=== PATIENT | male | born 1955 | race Caucasian/White ===

== ENCOUNTER 2019-11-15 09:36 | Inpatient (IN) | payer BC ==
[~2019-11-15] VITALS: Ht 185.4 cm; Wt 82.5 kg
[2019-11-15 10:03] LABS: BASOPHILS % (AUTO) 1 % (0-1); EOSINOPHILS # (AUTO) 0.02 x10^3/uL (0-0.4); EOSINOPHILS % (AUTO) 0 % (1-7); LYMPHOCYTES # (AUTO) 1.42 x10^3/uL (1-3.4); LYMPHOCYTES % (AUTO) 12 % (22-44); MD NO; MEAN CORPUSCULAR HEMOGLOBIN 34.5 pg (27.5-34.5); MEAN CORPUSCULAR VOLUME 101.4 fL (81-97); MEAN PLATELET VOLUME 8.6 fL (7.4-10.4); MONOCYTES # (AUTO) 0.97 x10^3/uL (0.2-0.8); MONOCYTES % (AUTO) 8 % (2-9); NEUTROPHILS # (AUTO) 9.07 x10^3/uL (1.8-6.8); NEUTROPHILS % (AUTO) 78 % (42-75); PLATELET COUNT 263 x10^3/uL (130-400); RED CELL DISTRIBUTION WIDTH 13.6 % (9.4-14.8)
[2019-11-15 10:13] LABS: ALANINE AMINOTRANSFERASE 41 U/L (12-78); ALBUMIN 2.6 g/dL (3.4-5.0); CALCIUM 8.9 mg/dL (8.5-10.1); CREATININE 0.78 mg/dL (0.7-1.3)
[2019-11-15 10:17] LABS: ALKALINE PHOSPHATASE 169 U/L (45-117); BILIRUBIN,TOTAL 0.8 mg/dL (0.2-1.0); TOTAL PROTEIN 6.7 g/dL (6.4-8.2); TROPONIN I < 0.015 ng/mL (0.000-0.045)
[2019-11-15 10:25] LABS: ANION GAP 8 mmol/L (5-15); CHLORIDE 101 mmol/L (98-107)
[2019-11-15] MEDS ORDERED: PARO40TA3 PO (10:30)
[2019-11-15] MEDS ORDERED: PREG150C PO (10:30)
[2019-11-15] MEDS ORDERED: [UNRECOGNIZED DRUG - CODE] (10:30)
[2019-11-15] MEDS ORDERED: HYDROCHLOROTH12.5 MG PO (10:30)
[2019-11-15] MEDS ORDERED: PLEASE ENTER ALLERGIES MC SCH (10:30)
--- NOTE | 2019-11-15 10:31 | NUR ---
PT SITTING IN BED, ON PHONE. NO SIGNS OF DISTRESS. VSS. WILL CONTINUE TO MONITOR.
[2019-11-15] MEDS ORDERED: PREGABALIN 100 MG CAPSULE PO ONE (11:00)
--- NOTE | 2019-11-15 11:03 | NUR ---
PT TO CT. PT SITTING IN BED, VSS, NO SIGNS OF DISTRESS.
[2019-11-15] MEDS ORDERED: PREGABALIN 150 MG CAPSULE PO ONE (11:30)
--- NOTE | 2019-11-15 12:30 | NUR ---
PT SITTING IN BED, NO SIGNS OF DISTRESS. WILL CONITNUE TO MONITOR.
--- NOTE | 2019-11-15 12:30 | NUR ---
Note kaya in [facility] - 11/15/19 at 1410 by OSBALDO PT SITTING IN BED, NO SIGNS OF DISTRESS. WILL CONITNUE TO MONITOR.
--- NOTE | 2019-11-15 13:15 | NUR ---
PT INCONTINENT OF URINE, LINENS CHANGED, PT ON CHUCKS.
--- NOTE | 2019-11-15 13:15 | NUR ---
Note kaya in ED - 11/15/19 at 1410 by OSBALDO PT INCONTINENT OF URINE, LINENS CHANGED, PT ON CHUCKS.
--- NOTE | 2019-11-15 14:00 | NUR ---
PT SITTING IN BED, NO COMPLAINTS, WILL CONTINUE TO MONITOR.
--- NOTE | 2019-11-15 14:00 | NUR ---
Note kaya in [facility] - 11/15/19 at 1410 by OSBALDO PT SITTING IN BED, NO COMPLAINTS, WILL CONTINUE TO MONITOR.
--- NOTE | 2019-11-15 14:09 | NUR ---
Note kaya in [facility] - 11/15/19 at 1410 by OSBALDO REPORT GIVEN TO [facility]. PT LAYING IN BED, NO SIGNS OF DISTRESS.
--- NOTE | 2019-11-15 14:09 | NUR ---
PT SITTING IN BED, NO COMPLAINTS, WILL CONTINUE TO MONITOR.
[2019-11-15 14:46] VITALS: BP 149/88
[2019-11-15] MEDS ORDERED: ACETAMINOPHEN 325 MG TABLET PO PRN (15:00)
[2019-11-15] MEDS ORDERED: ONDANSETRON 2MG/ML, 2ML IVPush PRN (15:00)
[2019-11-15 15:29] LABS: TROPONIN I < 0.015 ng/mL (0.000-0.045)
[2019-11-15] MEDS: ENOXAPARIN 40 MG/0.4 ML SQ SCH (15:55)
[2019-11-15] MEDS: MORPHINE SULFATE 4 MG/ML, 1ML IVPush PRN ×2 (15:55→19:48)
[2019-11-15] MEDS ORDERED: PHARMACOKINETIC MONITORING MC PRN (19:00)
[2019-11-15] MEDS ORDERED: VANCOMYCIN PER PHARMACY MC PRN (19:00)
[2019-11-15] MEDS ORDERED: PHARMACOKINETIC CONSULTATION MC ONE (19:00)
[2019-11-15] MEDS ORDERED: VANCOMYCIN 2,200 MG in SODIUM CHLORIDE 0.9% 500 ML IV ONE (19:30)
[2019-11-15 19:35] VITALS: BP 93/62
[2019-11-15] MEDS: PREGABALIN 150 MG CAPSULE PO SCH (19:47)
[2019-11-15] MEDS: PIPERACILLIN/TAZO/PMX 3.375GM 50 ML IV SCH (20:20)
[2019-11-15 21:25] LABS: TROPONIN I < 0.015 ng/mL (0.000-0.045)
[2019-11-16 00:03] VITALS: BP 108/72
[2019-11-16] MEDS: MORPHINE SULFATE 4 MG/ML, 1ML IVPush PRN ×2 (00:06→04:46)
[2019-11-16] MEDS: PIPERACILLIN/TAZO/PMX 3.375GM 50 ML IV SCH (02:32)
[2019-11-16 05:57] LABS: BASOPHILS # (AUTO) 0.04 x10^3/uL (0-0.1); BASOPHILS % (AUTO) 0 % (0-1); EOSINOPHILS # (AUTO) 0.03 x10^3/uL (0-0.4); EOSINOPHILS % (AUTO) 0 % (1-7); LYMPHOCYTES # (AUTO) 1.55 x10^3/uL (1-3.4); LYMPHOCYTES % (AUTO) 13 % (22-44); MD NO; MEAN CORPUSCULAR HEMOGLOBIN 34.3 pg (27.5-34.5); MEAN CORPUSCULAR HGB CONC 33.3 g/dL (33.2-36.2); MEAN CORPUSCULAR VOLUME 102.9 fL (81-97); MEAN PLATELET VOLUME 8.7 fL (7.4-10.4); MONOCYTES # (AUTO) 1.19 x10^3/uL (0.2-0.8); MONOCYTES % (AUTO) 10 % (2-9); NEUTROPHILS # (AUTO) 9.17 x10^3/uL (1.8-6.8); NEUTROPHILS % (AUTO) 77 % (42-75); PLATELET COUNT 256 x10^3/uL (130-400); RED BLOOD COUNT 4.44 x10^6/uL (4.38-5.82); RED CELL DISTRIBUTION WIDTH 13.5 % (9.4-14.8)
[2019-11-16 06:05] LABS: CHLORIDE 104 mmol/L (98-107)
[2019-11-16 06:58] VITALS: BP 91/61
[2019-11-16 07:29] LABS: ALANINE AMINOTRANSFERASE 36 U/L (12-78); ALBUMIN 2.5 g/dL (3.4-5.0); ALKALINE PHOSPHATASE 170 U/L (45-117); ANION GAP 6 mmol/L (5-15); BILIRUBIN,TOTAL 0.9 mg/dL (0.2-1.0); CALCIUM 8.7 mg/dL (8.5-10.1); CREATININE 0.76 mg/dL (0.7-1.3); TOTAL PROTEIN 6.7 g/dL (6.4-8.2)
[2019-11-16] MEDS ORDERED: FLUMAZENIL 0.1 MG/1 ML, 5ML ONE (07:48)
[2019-11-16] MEDS ORDERED: MIDAZOLAM 1 MG/ML, 5ML ONE (07:48)
[2019-11-16] MEDS ORDERED: FENTANYL PF 100 MCG/2ML ONE (07:48)
[2019-11-16] MEDS ORDERED: NALOXONE 1 MG/ML, 2ML ONE (07:48)
[2019-11-16] MEDS ORDERED: HYDROCHLOROTHIAZIDE 12.5 MG CAPSULE PO SCH (09:00)
[2019-11-16] MEDS: PREGABALIN 150 MG CAPSULE PO SCH ×2 (10:39→20:14)
[2019-11-16] MEDS: PAROXETINE 20 MG TABLET PO SCH (10:39)
[2019-11-16] MEDS: SODIUM CHLORIDE 0.9% 1,000 ML IV SCH (10:39)
[2019-11-16] MEDS: ACETAMINOPHEN 325 MG TABLET PO PRN (12:49)
[2019-11-16 12:57] VITALS: BP 149/89
[2019-11-16] MEDS ORDERED: VANCOMYCIN 1,700 MG in SODIUM CHLORIDE 0.9% 250 ML IV SCH (13:30)
[2019-11-16] MEDS: DEXAMETHASONE 4 MG/ML, 1ML IVPush SCH ×2 (13:36→20:15)
[2019-11-16] MEDS: ENOXAPARIN 40 MG/0.4 ML SQ SCH (15:21)
[2019-11-16] MEDS ORDERED: OMNIPAQUE 350 MG/ML, 75ML BOTTLE ONE (15:42)
[2019-11-16] MEDS: KETOROLAC 30 MG/1 ML IVPush PRN ×2 (17:10→23:33)
[2019-11-16 19:14] VITALS: BP 106/77
[2019-11-16 20:09] LABS: BASOPHILS # (AUTO) 0.02 x10^3/uL (0-0.1); BASOPHILS % (AUTO) 0 % (0-1); EOSINOPHILS # (AUTO) 0.09 x10^3/uL (0-0.4); EOSINOPHILS % (AUTO) 1 % (1-7); LYMPHOCYTES # (AUTO) 0.76 x10^3/uL (1-3.4); LYMPHOCYTES % (AUTO) 8 % (22-44); MD NO; MEAN CORPUSCULAR HEMOGLOBIN 33.9 pg (27.5-34.5); MEAN CORPUSCULAR HGB CONC 33.2 g/dL (33.2-36.2); MEAN PLATELET VOLUME 8.8 fL (7.4-10.4); MONOCYTES % (AUTO) 5 % (2-9); NEUTROPHILS # (AUTO) 8.45 x10^3/uL (1.8-6.8); NEUTROPHILS % (AUTO) 86 % (42-75); PLATELET COUNT 233 x10^3/uL (130-400); RED BLOOD COUNT 4.53 x10^6/uL (4.38-5.82); RED CELL DISTRIBUTION WIDTH 13.7 % (9.4-14.8)
[2019-11-16 20:19] LABS: INTERNATIONAL NORMALIZED RATIO 0.96 (0.93-1.1); PROTHROMBIN TIME 10.2 Seconds (9.6-11.5)
[2019-11-16 20:21] LABS: ANION GAP 4 mmol/L (5-15); CALCIUM 8.7 mg/dL (8.5-10.1); CHLORIDE 106 mmol/L (98-107); CREATININE 1.05 mg/dL (0.7-1.3)
[2019-11-17 01:03] VITALS: BP 112/84
[2019-11-17] MEDS: SODIUM CHLORIDE 0.9% 1,000 ML IV SCH (01:56)
[2019-11-17] MEDS: DEXAMETHASONE 4 MG/ML, 1ML IVPush SCH ×3 (01:56→16:58)
[2019-11-17] MEDS: ACETAMINOPHEN 325 MG TABLET PO PRN (03:32)
[2019-11-17 05:37] LABS: BASOPHILS # (AUTO) 0.04 x10^3/uL (0-0.1); BASOPHILS % (AUTO) 1 % (0-1); EOSINOPHILS % (AUTO) 0 % (1-7); LYMPHOCYTES # (AUTO) 0.54 x10^3/uL (1-3.4); LYMPHOCYTES % (AUTO) 7 % (22-44); MD NO; MEAN CORPUSCULAR HEMOGLOBIN 33.6 pg (27.5-34.5); MEAN CORPUSCULAR HGB CONC 33.2 g/dL (33.2-36.2); MEAN CORPUSCULAR VOLUME 101.3 fL (81-97); MEAN PLATELET VOLUME 9.3 fL (7.4-10.4); MONOCYTES # (AUTO) 0.29 x10^3/uL (0.2-0.8); MONOCYTES % (AUTO) 4 % (2-9); NEUTROPHILS # (AUTO) 7.32 x10^3/uL (1.8-6.8); NEUTROPHILS % (AUTO) 89 % (42-75); PLATELET COUNT 228 x10^3/uL (130-400); RED BLOOD COUNT 4.39 x10^6/uL (4.38-5.82); RED CELL DISTRIBUTION WIDTH 13.4 % (9.4-14.8)
[2019-11-17 05:47] LABS: ANION GAP 4 mmol/L (5-15); CALCIUM 8.7 mg/dL (8.5-10.1); CHLORIDE 110 mmol/L (98-107); CREATININE 0.93 mg/dL (0.7-1.3)
[2019-11-17] MEDS: KETOROLAC 30 MG/1 ML IVPush PRN (05:50)
[2019-11-17 08:00] VITALS: BP 113/83
[2019-11-17] MEDS ORDERED: DEXAMETHASONE 4 MG/ML, 1ML ONE ×3 (08:52→13:00)
[2019-11-17] MEDS: PREGABALIN 150 MG CAPSULE PO SCH ×2 (09:00→20:04)
[2019-11-17] MEDS: PAROXETINE 20 MG TABLET PO SCH (09:00)
[2019-11-17] MEDS ORDERED: BUPIVACAINE/PF-EPI 0.5% 1:200K ONE (09:08)
[2019-11-17] MEDS ORDERED: METHYLENE BLUE 10 MG/ML 10ML ONE (09:08)
[2019-11-17] MEDS ORDERED: BACITRACIN 50,000 UNIT ONE (09:09)
[2019-11-17] MEDS ORDERED: THROMBIN 5,000 UNIT VIAL TP ONE (09:09)
[2019-11-17] MEDS ORDERED: THROMBIN 20,000 UNIT VIAL TP ONE (09:09)
[2019-11-17] MEDS ORDERED: CHLORHEXIDINE 15 ML UDC MM ONE (09:30)
[2019-11-17] MEDS ORDERED: CHLORHEXIDINE 15 ML UDC ONE (09:31)
[2019-11-17] MEDS ORDERED: REMIFENTANIL 2 MG ONE ×2 (09:33→12:25)
[2019-11-17] MEDS ORDERED: FENTANYL PF 100 MCG/2ML ONE (09:33)
[2019-11-17] MEDS ORDERED: MIDAZOLAM 1 MG/ML, 2ML ONE (09:34)
[2019-11-17] MEDS ORDERED: ONDANSETRON 2MG/ML, 2ML ONE ×2 (09:44→11:40)
[2019-11-17] MEDS ORDERED: BACITRACIN OINT 500U/GM, 15 GM ONE (11:25)
[2019-11-17] MEDS ORDERED: VANCOMYCIN 1,000 MG ONE (11:25)
[2019-11-17] MEDS ORDERED: PROPOFOL 10 MG/ML, 50ML ONE (11:40)
[2019-11-17] MEDS ORDERED: PHENYLEPHRINE 10 MG/ML ONE (11:40)
[2019-11-17] MEDS ORDERED: PROPOFOL 10 MG/ML, 20ML ONE (11:40)
[2019-11-17] MEDS ORDERED: CEFAZOLIN 1,000 MG ONE ×3 (12:59)
[2019-11-17] MEDS ORDERED: SUGAMMADEX 200 MG/2 ML IVPush ONE ×2 (12:59)
[2019-11-17] MEDS ORDERED: ROCURONIUM 10MG/ML,5ML ONE (12:59)
[2019-11-17] MEDS ORDERED: MEPERIDINE/PF 25MG/0.5ML IVPush PRN (13:30)
[2019-11-17] MEDS ORDERED: OXYcodone 5 MG/5 ML ORAL.SOL UDC PO PRN (13:30)
[2019-11-17] MEDS ORDERED: PROMETHAZINE 25 MG/ML, 1ML IVPush PRN (13:30)
[2019-11-17] MEDS ORDERED: FENTANYL PF 100 MCG/2ML IV PRN (13:30)
[2019-11-17] MEDS ORDERED: ACETAMINOPHEN 325 MG TABLET PO PRN (13:30)
[2019-11-17] MEDS ORDERED: HYDROmorphone 2 MG/ML, 1ML ONE ×2 (13:51→14:29)
[2019-11-17] MEDS: HYDROmorphone 1 MG/ML, 1ML INJ IVPush PRN ×3 (14:23→14:57)
[2019-11-17] MEDS ORDERED: METHOCARBAMOL 1,000 MG in DEXTROSE 5% 100 ML IV ONE (14:30)
[2019-11-17] MEDS ORDERED: LABETALOL 5MG/ML, 20ML ONE (14:35)
[2019-11-17] MEDS ORDERED: hydrALAzine 20 MG/ML, 1ML ONE (14:35)
[2019-11-17] MEDS: ENOXAPARIN 40 MG/0.4 ML SQ SCH (15:00)
[2019-11-17] MEDS ORDERED: hydrALAzine 20 MG/ML, 1ML IV PRN (15:00)
[2019-11-17] MEDS ORDERED: LABETALOL 5MG/ML, 20ML IVPush PRN (15:00)
[2019-11-17] MEDS ORDERED: DEXAMETHASONE 4 MG/ML, 1ML IVPush SCH (16:00)
[2019-11-17] MEDS ORDERED: DIPHENHYDRAMINE 25 MG CAPSULE PO PRN (16:30)
[2019-11-17] MEDS ORDERED: MAGNESIUM HYDROXIDE 8%, 30ML UDC PO PRN (16:30)
[2019-11-17] MEDS ORDERED: DIPHENHYDRAMINE 50 MG/ML, 1ML IVPush PRN (16:30)
[2019-11-17] MEDS ORDERED: DIPHENHYDRAMINE 50 MG/ML, 1ML IM PRN (16:30)
[2019-11-17] MEDS ORDERED: BISACODYL 10 MG SUPP PR PRN (16:30)
[2019-11-17] MEDS ORDERED: ACETAMINOPHEN 500 MG TABLET PO PRN (16:30)
[2019-11-17] MEDS ORDERED: ONDANSETRON 2MG/ML, 2ML IV PRN (16:30)
[2019-11-17] MEDS ORDERED: ACETAMINOPHEN 650 MG SUPP PR PRN (16:30)
[2019-11-17] MEDS: HYDROmorphone 2 MG/ML, 1ML IVPush PRN ×2 (16:39→19:56)
[2019-11-17] MEDS: NS + 20MEQ KCL 1,000 ML IV SCH (16:58)
[2019-11-17] MEDS: HYDROcodone/APAP 5/325 TABLET PO PRN (18:31)
[2019-11-17] MEDS: CEFAZOLIN 3,000 MG in SODIUM CHLORIDE 0.9% 100 ML IVPB SCH (21:13)
[2019-11-17] MEDS: OXYcodone IR 5MG TABLET PO PRN (21:19)
[2019-11-17] MEDS: METHOCARBAMOL 750 MG in DEXTROSE 5% 100 ML IV SCH (22:17)
[2019-11-18] MEDS: OXYcodone IR 5MG TABLET PO PRN ×5 (00:03→21:03)
[2019-11-18] MEDS: DEXAMETHASONE 4 MG/ML, 1ML IVPush SCH ×3 (00:03→16:55)
[2019-11-18] MEDS: NS + 20MEQ KCL 1,000 ML IV SCH (03:21)
[2019-11-18 04:00] VITALS: BP 105/62
[2019-11-18 04:40] LABS: BASOPHILS # (AUTO) 0.26 x10^3/uL (0-0.1); BASOPHILS % (AUTO) 2 % (0-1); EOSINOPHILS % (AUTO) 0 % (1-7); LYMPHOCYTES # (AUTO) 0.65 x10^3/uL (1-3.4); LYMPHOCYTES % (AUTO) 5 % (22-44); MD NO; MEAN CORPUSCULAR HEMOGLOBIN 33.8 pg (27.5-34.5); MEAN CORPUSCULAR HGB CONC 33.2 g/dL (33.2-36.2); MEAN PLATELET VOLUME 9.1 fL (7.4-10.4); MONOCYTES # (AUTO) 0.75 x10^3/uL (0.2-0.8); MONOCYTES % (AUTO) 5 % (2-9); NEUTROPHILS # (AUTO) 12.63 x10^3/uL (1.8-6.8); NEUTROPHILS % (AUTO) 88 % (42-75); PLATELET COUNT 202 x10^3/uL (130-400); RED CELL DISTRIBUTION WIDTH 13.3 % (9.4-14.8)
[2019-11-18 04:49] LABS: ANION GAP 4 mmol/L (5-15); CALCIUM 8.3 mg/dL (8.5-10.1); CHLORIDE 110 mmol/L (98-107); CREATININE 0.71 mg/dL (0.7-1.3)
[2019-11-18] MEDS: CEFAZOLIN 3,000 MG in SODIUM CHLORIDE 0.9% 100 ML IVPB SCH ×2 (04:58→13:48)
[2019-11-18] MEDS: METHOCARBAMOL 750 MG in DEXTROSE 5% 100 ML IV SCH ×3 (04:58→22:38)
[2019-11-18 05:00] VITALS: BP 110/65
[2019-11-18] MEDS: SENNA/DOCUSATE TABLET PO SCH (09:14)
[2019-11-18] MEDS: PAROXETINE 20 MG TABLET PO SCH (09:15)
[2019-11-18] MEDS: PREGABALIN 150 MG CAPSULE PO SCH ×2 (09:15→20:54)
[2019-11-18] MEDS: GABAPENTIN 100 MG CAPSULE PO SCH ×3 (09:15→20:54)
[2019-11-18] MEDS: SODIUM CHLORIDE 0.9% 1,000 ML IV SCH (12:49)
[2019-11-18] MEDS: HYDROcodone/APAP 5/325 TABLET PO PRN (12:53)
[2019-11-18] MEDS ORDERED: METHOCARBAMOL 750 MG TABLET ONE (13:53)
[2019-11-18] MEDS: HYDROmorphone 2 MG/ML, 1ML IVPush PRN ×3 (22:46→23:26)
[2019-11-19] MEDS: DEXAMETHASONE 4 MG/ML, 1ML IVPush SCH ×3 (01:12→16:07)
[2019-11-19] MEDS: SODIUM CHLORIDE 0.9% 1,000 ML IV SCH (02:00)
[2019-11-19] MEDS: HYDROmorphone 2 MG/ML, 1ML IVPush PRN ×7 (02:37→23:30)
[2019-11-19 04:00] VITALS: BP 123/84
[2019-11-19 05:00] VITALS: BP 136/83
[2019-11-19] MEDS: METHOCARBAMOL 750 MG in DEXTROSE 5% 100 ML IV SCH ×2 (06:27→15:57)
[2019-11-19] MEDS: PREGABALIN 150 MG CAPSULE PO SCH ×2 (08:40→22:19)
[2019-11-19] MEDS: SENNA/DOCUSATE TABLET PO SCH (08:40)
[2019-11-19] MEDS: HYDROcodone/APAP 5/325 TABLET PO PRN ×3 (08:40→22:19)
[2019-11-19] MEDS: PAROXETINE 20 MG TABLET PO SCH (08:40)
[2019-11-19] MEDS: GABAPENTIN 100 MG CAPSULE PO SCH ×3 (08:41→22:19)
[2019-11-19] MEDS: OXYcodone IR 5MG TABLET PO PRN ×3 (09:35→23:31)
[2019-11-19] MEDS ORDERED: GADOTERATE 10 MMOL/20 ML SYR ONE (13:04)
[2019-11-19 18:25] VITALS: BP 135/89
[2019-11-19] MEDS: METHOCARBAMOL 750 MG TABLET PO SCH (22:19)
[2019-11-20 01:35] VITALS: BP 148/93
[2019-11-20] MEDS: DEXAMETHASONE 4 MG/ML, 1ML IVPush SCH ×3 (02:08→17:45)
[2019-11-20] MEDS: HYDROmorphone 2 MG/ML, 1ML IVPush PRN ×7 (02:25→22:17)
[2019-11-20] MEDS: METHOCARBAMOL 750 MG TABLET PO SCH ×3 (06:53→22:16)
[2019-11-20] MEDS: HYDROcodone/APAP 5/325 TABLET PO PRN ×2 (06:54→12:38)
[2019-11-20 07:37] VITALS: BP 118/81
[2019-11-20 08:53] LABS: MEAN CORPUSCULAR HEMOGLOBIN 33.5 pg (27.5-34.5); MEAN CORPUSCULAR HGB CONC 32.4 g/dL (33.2-36.2); MEAN CORPUSCULAR VOLUME 103.2 fL (81-97); MEAN PLATELET VOLUME 9.5 fL (7.4-10.4); PLATELET COUNT 196 x10^3/uL (130-400); RED BLOOD COUNT 4.41 x10^6/uL (4.38-5.82); RED CELL DISTRIBUTION WIDTH 13.2 % (9.4-14.8)
[2019-11-20 08:57] LABS: ALANINE AMINOTRANSFERASE 45 U/L (12-78); ALBUMIN 2.1 g/dL (3.4-5.0); ANION GAP 5 mmol/L (5-15); CALCIUM 8.5 mg/dL (8.5-10.1); CHLORIDE 104 mmol/L (98-107); CREATININE 0.72 mg/dL (0.7-1.3)
[2019-11-20 08:59] LABS: ALKALINE PHOSPHATASE 157 U/L (45-117); BILIRUBIN,TOTAL 0.6 mg/dL (0.2-1.0); TOTAL PROTEIN 5.7 g/dL (6.4-8.2)
[2019-11-20] MEDS: PAROXETINE 20 MG TABLET PO SCH (09:05)
[2019-11-20] MEDS: GABAPENTIN 100 MG CAPSULE PO SCH ×3 (09:06→20:03)
[2019-11-20] MEDS: PREGABALIN 150 MG CAPSULE PO SCH ×2 (09:06→20:03)
[2019-11-20] MEDS: SENNA/DOCUSATE TABLET PO SCH (09:06)
[2019-11-20 09:27] LABS: MD YES
[2019-11-20 09:29] LABS: LYMPH#(MANUAL) 1.47 x10^3/uL (1-3.4); LYMPHS% (MANUAL) 7 % (22-44); MONOS#(MANUAL) 0.63 x10^3/uL (0.3-2.7); MONOS% (MANUAL) 3 % (2-9); SEGS% (MANUAL) 90 % (42-75)
[2019-11-20 09:31] LABS: <PLATELET ESTIMATE> ADEQUATE; <PLT MORPHOLOGY> NORMAL PLT MORPH
[2019-11-20 14:57] VITALS: BP 109/72
[2019-11-20 19:33] VITALS: BP 144/85
[2019-11-21] MEDS: HYDROcodone/APAP 5/325 TABLET PO PRN ×2 (00:56→05:17)
[2019-11-21] MEDS: DEXAMETHASONE 4 MG/ML, 1ML IVPush SCH ×3 (00:56→16:50)
[2019-11-21 01:06] VITALS: BP 144/84
[2019-11-21] MEDS: HYDROmorphone 2 MG/ML, 1ML IVPush PRN ×6 (03:14→22:15)
[2019-11-21] MEDS: METHOCARBAMOL 750 MG TABLET PO SCH ×3 (05:33→22:14)
[2019-11-21 07:14] VITALS: BP 99/65
[2019-11-21] MEDS: GABAPENTIN 100 MG CAPSULE PO SCH ×3 (08:54→22:14)
[2019-11-21] MEDS: OXYcodone IR 5MG TABLET PO PRN ×2 (08:54→16:50)
[2019-11-21] MEDS: PAROXETINE 20 MG TABLET PO SCH (08:54)
[2019-11-21] MEDS: SENNA/DOCUSATE TABLET PO SCH (08:54)
[2019-11-21] MEDS: PREGABALIN 150 MG CAPSULE PO SCH ×2 (08:55→19:50)
[2019-11-21] MEDS: HEPARIN 5,000 UNITS/ML, 1ML SQ SCH ×2 (10:17→16:50)
[2019-11-21 14:00] VITALS: BP 139/81
[2019-11-21 19:29] VITALS: BP 111/87
[2019-11-22] MEDS: HYDROmorphone 2 MG/ML, 1ML IVPush PRN ×9 (00:11→22:51)
[2019-11-22] MEDS: DEXAMETHASONE 4 MG/ML, 1ML IVPush SCH ×3 (00:12→22:51)
[2019-11-22] MEDS: HEPARIN 5,000 UNITS/ML, 1ML SQ SCH ×3 (00:12→22:51)
[2019-11-22 02:11] VITALS: BP 134/86
[2019-11-22] MEDS: METHOCARBAMOL 750 MG TABLET PO SCH ×3 (02:32→22:51)
[2019-11-22 06:22] LABS: ALBUMIN 2.1 g/dL (3.4-5.0); ANION GAP 3 mmol/L (5-15); CALCIUM 8.7 mg/dL (8.5-10.1); CHLORIDE 104 mmol/L (98-107)
[2019-11-22 06:26] LABS: ALANINE AMINOTRANSFERASE 87 U/L (12-78); ALKALINE PHOSPHATASE 211 U/L (45-117); BILIRUBIN,TOTAL 0.7 mg/dL (0.2-1.0); CREATININE 0.64 mg/dL (0.7-1.3); TOTAL PROTEIN 6.1 g/dL (6.4-8.2)
[2019-11-22 06:29] LABS: BASOPHILS # (AUTO) 0.05 x10^3/uL (0-0.1); BASOPHILS % (AUTO) 0 % (0-1); EOSINOPHILS % (AUTO) 0 % (1-7); LYMPHOCYTES % (AUTO) 7 % (22-44); MD NO; MEAN CORPUSCULAR HEMOGLOBIN 33.7 pg (27.5-34.5); MEAN CORPUSCULAR HGB CONC 32.9 g/dL (33.2-36.2); MEAN CORPUSCULAR VOLUME 102.4 fL (81-97); MEAN PLATELET VOLUME 10.2 fL (7.4-10.4); MONOCYTES # (AUTO) 0.51 x10^3/uL (0.2-0.8); MONOCYTES % (AUTO) 4 % (2-9); NEUTROPHILS # (AUTO) 12.01 x10^3/uL (1.8-6.8); NEUTROPHILS % (AUTO) 89 % (42-75); PLATELET COUNT 204 x10^3/uL (130-400); RED CELL DISTRIBUTION WIDTH 13.3 % (9.4-14.8)
[2019-11-22 07:34] VITALS: BP 148/88
[2019-11-22] MEDS: GABAPENTIN 100 MG CAPSULE PO SCH ×3 (09:00→22:51)
[2019-11-22] MEDS ORDERED: FENTANYL PF 100 MCG/2ML ONE (10:05)
[2019-11-22] MEDS ORDERED: MIDAZOLAM 1 MG/ML, 5ML ONE (10:06)
[2019-11-22] MEDS ORDERED: GADOTERATE 10 MMOL/20 ML SYR ONE (11:21)
[2019-11-22 12:41] VITALS: BP 141/84
[2019-11-22] MEDS: PREGABALIN 150 MG CAPSULE PO SCH ×2 (13:41→22:51)
[2019-11-22] MEDS: SENNA/DOCUSATE TABLET PO SCH (13:42)
[2019-11-22] MEDS: PAROXETINE 20 MG TABLET PO SCH (13:42)
[2019-11-22 19:01] VITALS: BP 151/84
[2019-11-23] MEDS: HYDROmorphone 2 MG/ML, 1ML IVPush PRN ×7 (01:15→16:46)
[2019-11-23 01:19] VITALS: BP 133/82
[2019-11-23] MEDS: DEXAMETHASONE 4 MG/ML, 1ML IVPush SCH ×2 (06:07→14:38)
[2019-11-23] MEDS: HEPARIN 5,000 UNITS/ML, 1ML SQ SCH ×2 (06:07→14:37)
[2019-11-23] MEDS: METHOCARBAMOL 750 MG TABLET PO SCH ×2 (06:07→14:30)
[2019-11-23 06:47] VITALS: BP 127/81
[2019-11-23] MEDS: PAROXETINE 20 MG TABLET PO SCH (09:29)
[2019-11-23] MEDS: SENNA/DOCUSATE TABLET PO SCH (09:29)
[2019-11-23] MEDS: PREGABALIN 150 MG CAPSULE PO SCH (09:29)
[2019-11-23] MEDS: GABAPENTIN 100 MG CAPSULE PO SCH ×2 (09:29→16:46)
[2019-11-23] MEDS: OXYcodone IR 5MG TABLET PO PRN (11:29)
[2019-11-23 12:42] VITALS: BP 132/79
[2019-11-23] MEDS ORDERED: METH750T2 PO (14:23)
[2019-11-23] MEDS ORDERED: HYDR2TAB40 PO (14:23)
[2019-11-23] MEDS ORDERED: HYDR-3237 PO (14:23)
[2019-11-23] MEDS ORDERED: GABA-826 PO (14:23)
[2019-11-23] MEDS ORDERED: ACET500T64 PO (14:23)
[2019-11-23] MEDS ORDERED: PRED50TA PO (14:23)
[2019-11-23] MEDS ORDERED: SENN-193 PO (14:23)
== END 2019-11-23 17:23 | DRG 28 ==
LOC: ED 10:40 → EDIP 12:33 → 4EST 14:38 → CCU 11-17 14:59 → 3WST 11-19 18:28
PROVIDERS: ADMIT Internal Medicine; ATTEND Hospitalist
PROC: F07Z9ZZ Gait Training/Functional Ambulation Treatment (ICD-10-PCS; 2019-11-16)
PROC: 00BX0ZX Excision of Thoracic Spinal Cord, Open Approach, Diagnostic (ICD-10-PCS; 2019-11-17)
PROC: 4A11X4G Monitoring of Peripheral Nervous Electrical Activity, Intraoperative, External Approach (ICD-10-PCS; 2019-11-17)
PROC: 00NX0ZZ Release Thoracic Spinal Cord, Open Approach (ICD-10-PCS; principal; 2019-11-17 12:30)
DX: C79.49 Secondary malignant neoplasm of other parts of nervous system (principal); E43 Unspecified severe protein-calorie malnutrition; I63.9 Cerebral infarction, unspecified; C34.90 Malignant neoplasm of unspecified part of unspecified bronchus or lung; C78.7 Secondary malignant neoplasm of liver and intrahepatic bile duct; G95.20 Unspecified cord compression; E87.1 Hypo-osmolality and hyponatremia; G82.20 Paraplegia, unspecified; R65.10 Systemic inflammatory response syndrome (SIRS) of non-infectious origin without acute organ dysfunction; Z51.5 Encounter for palliative care; Z66 Do not resuscitate; D75.89 Other specified diseases of blood and blood-forming organs; F12.10 Cannabis abuse, uncomplicated; F17.210 Nicotine dependence, cigarettes, uncomplicated; F32.9 Major depressive disorder, single episode, unspecified; G89.29 Other chronic pain; I10 Essential (primary) hypertension; M50.10 Cervical disc disorder with radiculopathy, unspecified cervical region; R40.0 Somnolence; R74.0 Nonspecific elevation of levels of transaminase and lactic acid dehydrogenase [LDH]; R79.89 Other specified abnormal findings of blood chemistry; Z68.24 Body mass index [BMI] 24.0-24.9, adult
CPT/HCPCS: 36415; 70450; 70553; 71045; 71260; 72040; 72156; 72157; 72158; 80048; 80053; 82378; 82607; 83735; 83880; 84100; 84443; 84484; 85025; 85610; 86850; 86900; 86923; 87081; 88305; 88331; 88341; 88342; 93005; 93970; 95938; 95941; 99156; 99157; G0378; J0690; J1100; J1170; J1644; J1650; J1885; J2250; J2405; J2543; J2704; J3010; J3370; J3480; Q9967; A9575; C1762; J0360; J2270; J2310; J2370; J2800; J7030; J7040; Q9968